=== PATIENT | female | born 1980 | race Caucasian/White ===

== ENCOUNTER → 2016-09-08 | Outpatient (CLI) | payer BC ==
[~2016-09-08] MED LIST: ALBUAER19 INH; BUDE180I INH; CLR10 PO; PRENTAB26 PO
== END ==
LOC: C.PAPS 08:35
PROVIDERS: ATTEND Obstetrics & Gynecology
DX: Z01.419 Encounter for gynecological examination (general) (routine) without abnormal findings (principal)